=== PATIENT | female | born 1970 | race Caucasian/White ===

== ENCOUNTER → 2020-11-21 15:33 | Outpatient (CLI) | payer OTHER, SELFPAY ==
--- NOTE | ~2020-11-21 | CT_ITS ---
EXAMINATION: CT diagnostic chest wo con DATE: 11/21/2020 16:02 INDICATION: Covid 19 infection 1 year ago TECHNIQUE: Computed tomography (CT) of the chest was performed without intravenous contrast. Automate d exposure control and iterative reconstruction technique were employed. Exam dose: 525.54 mGy-cm to thelma exam DLP. COMPARISON: 06/13/2017 PA and lateral chest FINDINGS: There are small calcified pulmonary granuloma at the right lung apex. There is minimal disc oid atelectasis or scarring at the lingula. No pulmonary infiltrate or consolidation or pulmonary mas s lesion is evident. Normal heart size. Left main and anterior descending coronary artery calcification. No pericardial ef fusion. No hilar or mediastinal mass lesion or lymphadenopathy. No thoracic aortic aneurysm. Very small sliding hiatal hernia. Normal morphology of the adrenal glands. Hepatic steatosis. Status post cholecystectomy. Degenerative spurring of the thoracic spine. No suspicious osteolytic or osteoblastic lesions. IMPRESSION: No significant thoracic abnormal finding Hepatic steatosis Status post cholecystectomy Reviewed, dictated and finalized at [facility] Reviewed, dictated and finalized at [facility].
== END ==
PROVIDERS: Visit Provider Family Medicine
DX: U07.1 COVID-19 (principal); K76.0 Fatty (change of) liver, not elsewhere classified
CPT/HCPCS: 71250

== ENCOUNTER 2021-09-09 18:54 | Emergency (ER) | payer BC, SELFPAY ==
[2021-09-09 19:00] VITALS: BP 139/81; PULSE 57; RESP 14; TEMP 36.7; O2SAT 99
--- NOTE | 2021-09-09 19:09 | ED.URI ---
HPI - URI/Sore Throat General Chief Complaint: Upper Respiratory Infection Stated Complaint: Sore Throat/Ear Pain Time Seen by Provider: 09/09/21 19:09 Source: patient and RN notes reviewed History of Present Illness HPI Narrative: Patient is a 50-year-old female who presents the urgent care with complaints of left ear pain for the last 2 days and sore throat that started this morning. Patient states she is been taking Zyrtec and ibuprofen. Denies of any ill exposures or contacts. Denies any fever, chills, nausea, vomiting, cough or headache. Patient states she is concerned of Covid considering she watches her grandson on and Fridays. However patient has no symptoms of Covid with the exception of a sore throat. No other acute complaints. No acute distress noted. Patient read the plan of care. Some parts of this dictation were generated by voice recognition software and may contain typographical and/or grammatical inaccuracies. Related Data Home Medications Medication Instructions Recorded Confirmed hydrochlorothiazide 25 mg PO DAILY 09/09/21 09/09/21 losartan 25 mg PO DAILY 09/09/21 09/09/21 Allergies Allergy/AdvReac Type Severity Reaction Status Date / Time No Known Allergies Allergy Unknown Verified 09/09/21 19:11 Review of Systems Review of Systems: CONSTITUTIONAL: Denies fever, chills, or sweats. EYES: Denies visual changes, redness, or discharge. ENT: Reports of sore throat bilateral otalgia more so on the left CARDIOVASCULAR: Denies chest pain, palpitations, or edema. RESPIRATORY: Denies cough or dyspnea. GASTROINTESTINAL: Denies abdominal pain, nausea, vomiting, or diarrhea. GENITOURINARY: Denies dysuria or hematuria. SKIN: Denies rash or itching. MUSCULOSKELETAL: Denies back pain, joint pain, or myalgia. NEUROLOGIC: Denies headache, numbness, or weakness. All other systems reviewed are negative, except as documented in HPI. PMFSH Comments At the time of my signature, I reviewed and agree with the nursing past medical, surgical, social, and family history. There is no relevant family history pertinent to the patient complaint. Exam Narrative: GENERAL: This is a well-nourished, well-developed patient, in no apparent distress. HEAD: normocephalic, atraumatic. EYES: PERRL. Sclera clear/white. Vision is grossly intact. EARS: External ears normal, auditory canals clear and without drainage, TMs normal without perforation. Hearing grossly intact. NOSE: External nose normal with no obvious nasal discharge, nares without redness, no rhinorrhea. THROAT: Mucous membranes moist, posterior pharynx clear. Moderate postnasal drainage with very mild left tonsillar edema without exudate NECK: Neck supple, mild tender submandibular lymphadenopathy CARDIOVASCULAR: Regular rate and rhythm without murmurs, gallops, or rubs. RESPIRATORY: Clear to auscultation. Breath sounds equal bilaterally. No wheezes, rales, or rhonchi. SKIN: warm, intact with no suspicious lesions or rash, good texture and turgor. NEURO: awake, alert, and oriented to person, place and time. There were no obvious focal neurologic abnormalities. EXTREMITIES: No clubbing, cyanosis, or edema. Course Course Level of Care: Express Care Visit Vital Signs Vital signs: Vital Signs Temperature 98.0 F 09/09/21 19:00 Pulse Rate 57 L 09/09/21 19:00 Respiratory Rate 14 09/09/21 19:00 Blood Pressure 139/81 09/09/21 19:00 Pulse Oximetry 99 09/09/21 19:00 Temperature 98.0 F 09/09/21 19:00 Pulse Rate 57 L 09/09/21 19:00 Respiratory Rate 14 09/09/21 19:00 Blood Pressure 139/81 09/09/21 19:00 Pulse Oximetry 99 09/09/21 19:00 Reviewed MDM - URI/Sore Throat MDM Narrative Medical decision making narrative: Reviewed lab results with the patient. She is aware that strep swab was negative. Educated patient on culture we will call within 72 hours if culture is positive and antibiotics are necessary. Advised the patient to co
[2021-09-11 16:39] LABS: SARS-CoV-2 RNA PCR Negative
== END 2021-09-09 19:33 | disposition home or self-care (01) ==
PROVIDERS: Emergency Provider Nurse Practitioner Family; PCP Family Medicine
DX: H92.02 Otalgia, left ear (principal); J02.9 Acute pharyngitis, unspecified; Z20.822 Contact with and (suspected) exposure to COVID-19; I10 Essential (primary) hypertension; Z90.711 Acquired absence of uterus with remaining cervical stump
CPT/HCPCS: 87081; 87880; 99203; C9803; G0463; U0003; U0005